=== PATIENT | female | born 1980 | race Caucasian/White ===

== ENCOUNTER 2019-02-14 14:00 | Outpatient (CLI) | payer OTHER ==
[2014-05-04 12:29] VITALS: BMI 33.9
[~2019-02-14 14:00] MED LIST: EZFE 200200 MG; IBUPROFEN600 MG PO; IRON PO; LOPRESSOR25 MG PO; PERCOCET 10/3251 TA1
== END 2019-02-14 14:30 | disposition home or self-care (01) ==
LOC: D.MAMMO 14:00
PROVIDERS: ATTEND Family Medicine
DX: Z12.31 Encounter for screening mammogram for malignant neoplasm of breast (principal)

== ENCOUNTER 2020-09-09 20:18 | Emergency (ER) | payer OTHER ==
[~2020-09-09] VITALS: Ht 167.6 cm; Wt 120.5 kg
[2020-09-09 20:47] VITALS: Ht 167.6 cm; Wt 120.5 kg
[2020-09-09] MEDS ORDERED: HYDROCHLOROTHIA25 MG PO (20:48)
[2020-09-09] MEDS ORDERED: REQUIP0.25 MG PO (20:49)
[2020-09-09] MEDS ORDERED: OMEPRAZOLE40 MG PO (20:49)
[2020-09-09 21:24] LABS: BASOPHILS 0.1 % (0-2); EOSINOPHILS 4.8 % (0-7); HEMATOCRIT 37.9 % (36.0-48.0); HEMOGLOBIN 12.3 g/dL (12-16); IMMATURE GRANULOCYTES 0.1 % (0-5); LYMPHOCYTE ABS# 2.58 10x3/uL (1.18-3.74); LYMPHOCYTES 36.1 % (15-50); MCH 30.7 pg (26.0-34.0); MCHC 32.5 g/dL (31.0-37.0); MCV 94.5 fL (80.0-100.0); MEAN PLATELET VOLUME 9.7 fL (7.4-10.4); MONOCYTES 5.7 % (2-11); NEUTROPHILS 53.2 % (40-80); PLATELET COUNT 311 10x3/uL (130-400); RBC 4.01 10x6/uL (4.00-5.40); RDW 12.9 % (11.5-14.5); WBC 7.2 10x3/uL (4.8-10.8)
[2020-09-09 21:35] LABS: INR 1.03 (0.85-1.17); PROTIME 12.4 SECONDS (11.6-15.0)
[2020-09-09 21:54] LABS: CALC OSMOLALITY 276 mosm/kg (275-300); CARBON DIOXIDE 24.5 mmol/L (21.0-32.0); CHLORIDE - SERUM 101 mmol/L (98-107); CREATININE - SERUM 1.1 mg/dL (0.6-1.3); GLUCOSE 87 mg/dL (74-106); POTASSIUM - SERUM 3.1 mmol/L (3.5-5.1); SODIUM 138 mmol/L (136-145); UREA NITROGEN 17 mg/dL (7-18); eGFR NON AFRICAN AMERICAN 58 mL/min (90-120)
[2020-09-09 22:10] LABS: ALBUMIN 3.8 g/dL (3.4-5.0); ALKALINE PHOSPHATASE 64 U/L (30-120); ALT (SGPT) 31 U/L (10-68); BILIRUBIN - TOTAL 0.21 mg/dL (0.2-1.3); CKMB 0.5 U/L (0.0-3.6); CREATINE KINASE 58 UL (21-215); MAGNESIUM - SERUM 1.9 mg/dL (1.8-2.4); PROTEIN - SERUM 7.9 g/dL (6.4-8.2)
[2020-09-09 22:11] LABS: TROPONIN-I < 0.017 ng/mL (0.000-0.060)
[2020-09-10 01:01] VITALS: BP 99/58
== END 2020-09-10 01:01 | disposition home or self-care (01) ==
LOC: D.ER 20:18
PROVIDERS: Emergency Medicine
DX: R00.2 Palpitations (principal); E87.6 Hypokalemia; I49.8 Other specified cardiac arrhythmias; I10 Essential (primary) hypertension; G25.81 Restless legs syndrome